=== PATIENT | female | born 1940 | race Two or more races ===

== ENCOUNTER → 2018-02-01 | Emergency (ER) | payer OTHER ==
[~2018-02-01] VITALS: Ht 160 cm; Wt 74.8 kg
== END | disposition left against medical advice (07) ==
LOC: ER 18:04
DX: Z53.20 Procedure and treatment not carried out because of patient's decision for unspecified reasons (principal)

== ENCOUNTER 2023-10-21 15:47 | Outpatient (CLI) | payer OTHER | END 2023-10-21 15:50 | disposition home or self-care (01) | LOC: RAD 15:47 | PROVIDERS: ATTEND Physical Medicine & Rehabilitation | DX: M54.50 Low back pain, unspecified (principal); S62.91XA Unspecified fracture of right hand, initial encounter for closed fracture ==

== ENCOUNTER 2023-10-27 09:52 | Outpatient (CLI) | payer OTHER | END 2023-10-27 10:09 | disposition home or self-care (01) | LOC: TOM 09:52 | PROVIDERS: ATTEND Internal Medicine | DX: E03.9 Hypothyroidism, unspecified (principal); I10 Essential (primary) hypertension; E55.9 Vitamin D deficiency, unspecified; E66.8 Other obesity; Z12.31 Encounter for screening mammogram for malignant neoplasm of breast; N60.12 Diffuse cystic mastopathy of left breast; E04.8 Other specified nontoxic goiter ==

== ENCOUNTER 2025-05-22 09:31 | Outpatient (CLI) | payer OTHER | END 2025-05-22 09:44 | disposition home or self-care (01) | LOC: MAMO-SONO 09:31 | PROVIDERS: ATTEND Obstetrics & Gynecology Maternal & Fetal Medicine | DX: N64.4 Mastodynia (principal); N63.0 Unspecified lump in unspecified breast; N60.11 Diffuse cystic mastopathy of right breast; Z12.31 Encounter for screening mammogram for malignant neoplasm of breast; N32.81 Overactive bladder; R33.9 Retention of urine, unspecified; N20.0 Calculus of kidney; E04.2 Nontoxic multinodular goiter; J40 Bronchitis, not specified as acute or chronic ==